=== PATIENT | male | born 2000 | race Caucasian/White ===

== ENCOUNTER 2020-03-14 04:09 | Emergency (ER) | payer OTHER, BC ==
[~2020-03-14] VITALS: Ht 172.7 cm; Wt 112.9 kg
[2020-03-14 04:17] VITALS: BP 157/90
--- NOTE | 2020-03-14 04:20 | NUR ---
PT AMBULATED TO BED #12
--- NOTE | 2020-03-14 04:30 | NUR ---
19 Y/O MALE PRESENTS TO ER WITH C/O HEMMORHOIDS X 1 WEEK. 8/10 PAIN. AFTER EATING LARGE BURRITO MOSTLY FILLED WITH "CHILES" PT STATES HE FEELS HARD LUMP ON INNER LEFT BUTTOCK, HE USED "TUCKS" AT MIDNIGHT FOR PAIN RELIEF ALSO C/O DIARRHEA. DENIES BLEEDING, NAUSEA, VOMITING, SOB, COUGH. UPON EXAMINATION WITH ERMAlireza JORDAN, NO VISIBLE HEMORRHOID WAS NOTED, ONLY TENDER REDDENED LUMP ON INSIDE OF INNER LEFT BUTTOCK. VSS, R/R EQUAL, AND UNLABORED. SIDE RAIL X1, BED IN LOW POSITION, WILL CONTINUE TO MONITOR. NKDA DENIES PMH
[2020-03-14] MEDS ORDERED: ceFAZolin 1,000 MG VIAL IM ONE (04:40)
[2020-03-14] MEDS ORDERED: WATER STERILE 10 ML MC ONE (04:44)
[2020-03-14 05:00] VITALS: BP 157/90
--- NOTE | 2020-03-14 05:00 | NUR ---
Patient discharged BY DR. JORDAN with v/s stable. Written and verbal after care instructions given and explained BY DR. JORDAN. Patient alert, oriented and verbalized understanding of instructions. Ambulatory with steady gait. All questions addressed prior to discharge BY DR. JORDAN. ID band removed. Patient advised to follow up with PMD. Rx of KEFLEX, NAPROXEN given. Patient educated on indication of medication including possible reaction and side effects. Opportunity to ask questions provided and answered.
== END 2020-03-14 05:00 | disposition home or self-care (01) ==
LOC: MED 04:09
DX: K61.1 Rectal abscess (principal)
CPT/HCPCS: 96372; 99283; J0690